=== PATIENT | male | born 1970 ===

== ENCOUNTER → 2018-07-04 | Outpatient (CLI) | payer OTHER | LOC: ULTRA 09:17 | DX: R14.0 Abdominal distension (gaseous) (principal); R19.7 Diarrhea, unspecified ==

== ENCOUNTER → 2018-07-18 | Outpatient (CLI) | payer OTHER | LOC: CAT 08:53 | DX: K42.9 Umbilical hernia without obstruction or gangrene (principal) ==

== ENCOUNTER → 2018-12-19 | Outpatient (CLI) | payer OTHER | LOC: CAT 09:50 | DX: Z13.6 Encounter for screening for cardiovascular disorders (principal); E78.00 Pure hypercholesterolemia, unspecified; I25.10 Atherosclerotic heart disease of native coronary artery without angina pectoris ==

== ENCOUNTER → 2019-10-22 | Outpatient (CLI) | payer OTHER | LOC: LAB 10:02 | PROVIDERS: ATTEND Neuromusculoskeletal Medicine & OMM | DX: R50.9 Fever, unspecified (principal); R19.7 Diarrhea, unspecified; Z20.828 Contact with and (suspected) exposure to other viral communicable diseases ==